=== PATIENT | female | born 2000 | race Caucasian/White ===

== ENCOUNTER 2022-01-13 18:57 | Emergency (ER) | payer OTHER, BC, SELFPAY ==
[2022-01-13 18:58] VITALS: BP 121/84; PULSE 88; RESP 16; TEMP 36.4; O2SAT 100; BMI 25.7
--- NOTE | 2022-01-13 19:25 | EDS_ITS ---
HPI History of Present Illness Chief Complaint: Shortness of Breath Informant: patient and parent Narrative Narrative: 21-year-old female was taken a horse at the [employer] when she suddenly developed shortness of breath. She states normal felt like her airway was closing off. She states that she started coughing and could not catch her breath. She denies any recent fevers or illnesses. No history of asthma. She states it almost felt like she had swallowed a fly. She is now she is feeling better but she still feels a tightness in the chest. PFSH PFSH Medical History no medical history no medical history Home Medications albuterol sulfate 90 mcg/actuation aerosol inhaler (Ventolin HFA) 2 puff inhalation Q2H PRN PRN Wheezing ##1 01/13/22 [Rx Last Taken Unknown] Allergy/AdvReac Type Severity Reaction Status Date / Time No Known Allergies Allergy Verified 01/13/22 18:57 Surgical History no surgical history no surgical history Social History (Updated 01/13/22 @ 19:[address] Navjot Doyle, DO) current gender identity: female Smoking Status: Never smoker Smokeless tobacco user: other substance use type: does not use ROS ROS ED Constitutional Constitutional ED: Denies chills, fever(s) or weight loss Eyes Eyes: Denies change in vision or diplopia ENT ENT ED: Denies ear pain, rhinorrhea or sore throat Cardiovascular Cardiovascular: Denies chest pain, orthopnea, palpitations or racing heartbeat Respiratory/Chest Respiratory/Chest: Reports cough and dyspnea; Denies orthopnea Gastrointestinal Gastrointestinal: Denies abdominal pain, diarrhea, nausea or vomiting Genitourinary Genitourinary ED: Denies dysuria, hematuria or urinary frequency Musculoskeletal Musculoskeletal: Denies arthralgias or myalgias Integumentary Denies abscess or rash Neurologic Neurologic: Denies headache(s) or weakness Psychiatric Psychiatric: Denies anxiety, depression, suicidal ideation or suicidal thoughts Endocrine Endocrinology: Denies polydipsia, polyphagia or polyuria Allergic/Immunologic Allergic/Immunologic ED: Denies mouth swelling, tongue swelling or urticaria EXAM Physical Exam Const Vital Signs: 01/13/22 18:58 01/13/22 19:30 01/13/22 19:42 Temperature 97.5 F L Temperature Source Temporal Pulse Rate 88 93 Respiratory Rate 16 18 Respiratory Effort Normal Non-Labored Respiratory Depth Normal Respiratory Pattern Normal Normal Blood Pressure 121/84 H Blood Pressure Mean 96 Pulse Ox 100 Oxygen Delivery Method Room Air Positive well nourished and well developed General Appearance ED: well developed HEENT Reports normocephalic, head/scalp atraumatic and moist mucous membranes Eyes PERRL and EOMs intact bilaterally Neck no lymphadenopathy, supple and no JVD Resp normal respiratory effort and clear to auscultation bilaterally Cardio regular rate, regular rhythm and no murmurs GI normal to inspection, nondistended, normoactive bowel sounds and non-tender Palpation: soft Back/Spine no CVA tenderness and normal ROM Extremity normal to inspection General Extremety ED: Negative for edema General Extremity: Negative for edema Neuro oriented x3 and CN's II-XII intact bilaterally Sensorium / Orientation: alert Motor Exam: strength 5/5 throughout Psych mental status grossly normal Mood & Affect: Negative for depressed or tearful Skin no rashes or lesions noted and no wounds MDM MDM MDM Narrative Medical decision making narrative: My interpretation of the chest x-ray is no acute process. Patient received a DuoNeb. She states she feels significantly better. Repeat lung auscultation finds improved aeration but continued no wheezing. I will write for the patient have albuterol MDI. I think this is most likely a bronchospasm. Radiography Diagnostic Testing: Clinical Impression(s) from Imaging Studies Chest X-Ray 01/13/22 19:30 IMPRESSION: Hyperinflated lungs which can be seen in asthma. Electronically Signed: Dinesh Ndiaye MD at 20:05 EDT , Discharge Plan Triage Chief Complaint: Shortness of Breath ED Provider: Navjot Doyle Dx/Rx/DC Orders Clinical Impression: Acute bronchospasm, Acute dyspnea Instructions: ED Bronchospasm (Adult) Prescriptions: New albuterol sulfate [Ventolin HFA] 1 INHALER inhaler 2 puff inhalation Q2H PRN PRN (Reason: Wheezing) Qty: 1 0RF Rx Instructions: with spacer Primary Care Provider: FREDY ZAVALA Referrals: FREDY ZAVALA [Other] Disposition Disposition: Home, Self Care
--- NOTE | 2022-01-13 19:30 | RAD_ITS ---
INDICATION: dyspnea EXAMINATION/TECHNIQUE: X-RAY - XR Chest 1 View COMPARISON: None. FINDINGS: The lungs are clear. Hyperinflated lungs. The cardiomediastinal silhouette is unremarkable. No pleural effusion or pneumothorax. No acute osseous abnormalities. RAD/Chest 1 View (Portable) IMPRESSION: Hyperinflated lungs which can be seen in asthma. Electronically Signed: Dinesh Ndiaye MD at 20:05 EDT ,
[2022-01-13 19:42] VITALS: PULSE 93; RESP 18
[2022-01-13] MEDS: Ipratropium/Albuterol Sulfate 3 ML AMPUL.NEB INHALATION (19:42)
== END 2022-01-13 20:09 | disposition home or self-care (01) ==
PROVIDERS: Emergency Provider Emergency Medicine; Visit Provider Emergency Medicine
DX: J98.01 Acute bronchospasm (principal); R06.00 Dyspnea, unspecified
CPT/HCPCS: 71045; 94640; 99251; 99282; G0463